=== PATIENT | female | born 1975 | race Two or more races ===

== ENCOUNTER 2022-07-06 22:09 | Emergency (ER) | payer BC, OTHER ==
[~2022-07-06] VITALS: Ht 170.2 cm; Wt 102.2 kg
[2022-07-06] MEDS ORDERED: cloNIDine HCL 0.1 MG TAB PO ONE (23:45)
[2022-07-07 00:05] LABS: Basophils # (auto) 0.2 10 ^3/uL (0-0.2); Basophils % (auto) 3.9 % (0.0-2.0); Eosinophils # (auto) 0.3 10 ^3/uL (0-0.8); Eosinophils % (auto) 6.7 % (0.0-7.0); Hematocrit 35.5 % (36.0-46.0); Hemoglobin 11.5 g/dL (12.2-16.2); Lymphocytes # (auto) 1.4 10 ^3/uL (0.4-5.4); Lymphocytes % (auto) 28.5 % (10.0-50.0); Mean Corpuscular Hemoglobin 27.3 pg (28.0-32.0); Mean Corpuscular Hgb Conc. 32.4 g/dL (32.0-36.0); Mean Corpuscular Volume 84.3 fL (80.0-100.0); Monocytes # (auto) 0.4 10 ^3/uL (0-1.3); Monocytes % (auto) 8.8 % (0.0-12.0); Neutrophils # (auto) 2.6 10 ^3/uL (1.6-8.6); Neutrophils % (auto) 52.1 % (37.0-80.0); Nucleated Red Blood Cells % 0.1 %; Red Blood Cells 4.22 10^6/uL (4.0-5.20); Red Cell Distribution Width 19.7 % (11.8-14.3)
[2022-07-07 00:26] LABS: BUN/Creatinine Ratio 15.2; Calcium 9.5 mg/dL (8.5-10.1)
[2022-07-07 00:28] LABS: Bilirubin, Total 0.3 mg/dL (0.2-1.0)
[2022-07-07 01:12] VITALS: BP 136/84
== END 2022-07-07 04:14 | disposition home or self-care (01) ==
LOC: ER 22:09
DX: I10 Essential (primary) hypertension (principal)
CPT/HCPCS: 36415; 71045; 80053; 84484; 85025; 93005

== ENCOUNTER 2024-03-16 07:11 | Emergency (ER) | payer BC ==
[~2024-03-16] VITALS: Ht 170.2 cm; Wt 112.0 kg
[2024-03-16 08:03] VITALS: BP 140/78; PULSE 59; RESP 16; TEMP 98.3; O2SAT 100
== END 2024-03-16 08:30 | disposition home or self-care (01) ==
LOC: ER 07:11
DX: I10 Essential (primary) hypertension (principal); Z00.00 Encounter for general adult medical examination without abnormal findings